=== PATIENT | male | born 1975 | race Caucasian/White ===

== ENCOUNTER 2018-12-17 21:27 | Emergency (ER) | payer OTHER ==
[~2018-12-17] VITALS: Ht 180.3 cm; Wt 95.3 kg
[~2018-12-17 21:27] MED LIST: FLONASE NS; PROTONIX40 M2 PO; ZOCOR 20 MG TAB20 M1 PO
[2018-12-17 21:32] VITALS: BP 155/99
[2018-12-17] MEDS ORDERED: NAPROSYN500 MG PO (22:22)
[2018-12-17] MEDS ORDERED: MOBIC15 MG PO (22:23)
== END 2018-12-17 22:33 | disposition home or self-care (01) ==
LOC: ER 21:27
DX: S61.210A Laceration without foreign body of right index finger without damage to nail, initial encounter (principal); K21.9 Gastro-esophageal reflux disease without esophagitis; W25.XXXA Contact with sharp glass, initial encounter; Y93.89 Activity, other specified; Y92.89 Other specified places as the place of occurrence of the external cause; Y99.8 Other external cause status